=== PATIENT | female | born 1995 | race Two or more races ===

== ENCOUNTER 2018-12-13 00:32 | Outpatient (CLI) | payer OTHER ==
[2018-12-13] MEDS ORDERED: PRENATAL TABLE1 EAC1 PO (02:53)
[2018-12-13] MEDS ORDERED: DIALYVITE 800-1 EACH PO (02:54)
[2018-12-13] MEDS ORDERED: IRON236 MG PO (02:54)
== END 2018-12-13 11:26 | disposition home or self-care (01) ==
LOC: OBS/DEL 00:32
DX: O46.8X3 Other antepartum hemorrhage, third trimester (principal); O99.013 Anemia complicating pregnancy, third trimester; D64.89 Other specified anemias